=== PATIENT | female | born 1965 | race Caucasian/White ===

== ENCOUNTER → 2021-12-25 | Outpatient (CLI) | payer BC, OTHER | LOC: RAD 10:04 | DX: M25.512 Pain in left shoulder (principal) | CPT/HCPCS: 73030 ==

== ENCOUNTER → 2022-01-01 | Day surgery (SDC) | payer BC, OTHER ==
[~2022-01-01] MED LIST: CATAPRES 0.1MG0.1 MG PO; CYCLOBENZAPRINE10 MG PO; FETZIMA40 MG PO; GABAPENTIN400 MG PO; IBU600 MG PO; PROTONIX40 MG PO; SUBOXONE 8 MG-1 EACH SL; ZOFRAN 4 MG TAB4 MG PO
== END | disposition home or self-care (01) ==
LOC: OR 09:09
DX: Z12.11 Encounter for screening for malignant neoplasm of colon (principal); K29.50 Unspecified chronic gastritis without bleeding; B96.81 Helicobacter pylori [H. pylori] as the cause of diseases classified elsewhere; D12.5 Benign neoplasm of sigmoid colon; K21.00 Gastro-esophageal reflux disease with esophagitis, without bleeding; K25.3 Acute gastric ulcer without hemorrhage or perforation; K64.1 Second degree hemorrhoids; I10 Essential (primary) hypertension; Z80.0 Family history of malignant neoplasm of digestive organs; Z72.0 Tobacco use
CPT/HCPCS: J2704; J7040